=== PATIENT | female | born 1965 | race Asian ===

== ENCOUNTER → 2018-06-19 10:25 | Outpatient (CLI) | payer BC, SELFPAY ==
[2018-06-27 13:12] LABS: HPV Reflexed? NOT INDICATED
== END ==
PROVIDERS: Family Provider Internal Medicine; PCP Internal Medicine; Referring Provider Internal Medicine; Visit Provider Internal Medicine
DX: Z00.00 Encounter for general adult medical examination without abnormal findings (principal)
CPT/HCPCS: 88175; G0145

== ENCOUNTER 2021-04-15 17:25 | Emergency (ER) | payer BC, SELFPAY ==
[2021-04-15 17:26] VITALS: BP 120/78; PULSE 78; RESP 16; TEMP 36.9; O2SAT 98; BMI 21.5
--- NOTE | 2021-04-15 19:06 | EKG12_ITS ---
Test Reason : SOB Blood Pressure : / mmHG Vent. Rate : 061 BPM Atrial Rate : 061 BPM P-R Int : 130 ms QRS Dur : 070 ms QT Int : 444 ms P-R-T Axes : 029 048 041 degrees QTc Int : 446 ms Normal sinus rhythm Normal ECG Confirmed by CRISTINA SANTILLAN, CARLOS A ([id number]), editorial manager YEE MADRID ([id number]) on 04/19/2021 1:03:56 PM Referred By: TEREZA Confirmed By:CARLOS A EVANS MD
--- NOTE | 2021-04-15 19:06 | RAD_ITS ---
STUDY: X-RAY CHEST REASON FOR EXAM: Female, 55 years old. sob TECHNIQUE: Frontal view COMPARISON: None. FINDINGS: The lungs are expanded. There is no demonstrated pleural abnormality. Questionable nodular density versus nipple shadow over the right lung base. Normal size heart. Normal mediastinum and benja. Normal visualized pulmonary arteries. Normal visualized aortic arch and descending thoracic aorta. Normal visualized thoracic spine. Normal visualized ribs, clavicles, and shoulders. There is no demonstrated abnormality of the visualized soft tissue structures of the upper abdomen. RAD/Chest 1 View (Portable) IMPRESSION: Questionable nodular density versus nipple shadow over the right lung base. Electronically Signed: Baldev Sawant DO at 20:06 EDT Tel [phone], Service support ,
--- NOTE | 2021-04-15 19:07 | EDS_ITS ---
HPI History of Present Illness Chief Complaint: Shortness of Breath Informant: patient Onset/Context/Timing Onset: Weeks (1 week) Context: Gradual Onset Current Severity: Mild Maximum Severity: Moderate Narrative Narrative: Patient presents secondary to upper back pain along with shortness of breath. Symptoms of been ongoing for the past week. She states that she stretches her arms out to the side or over her head the pain actually improves. She states she did have similar symptoms last year that lasted a couple days and then resolved. She was not evaluated at that time. Patient denies any personal or family history of coronary disease. PFSH PFSH no medical history Home Medications NK 06/19/18 [History Last Taken Unknown] Allergy/AdvReac Type Severity Reaction Status Date / Time No Known Allergies Allergy Verified 04/15/21 17:26 Family History Mother Colon cancer Uncle Cancer lung Unknown Cancer 2 cousins on maternal side Social History Smoking Status: Never smoker alcohol intake: never substance use type: does not use what type of physical activity do you participate in: none ROS ROS ED Constitutional Constitutional ED: Denies chills or fever(s) Eyes Eyes: Denies change in vision ENT ENT ED: Denies sore throat Cardiovascular Cardiovascular: Denies chest pain Respiratory/Chest Respiratory/Chest: Reports dyspnea; Denies cough Gastrointestinal Gastrointestinal: Denies abdominal pain, diarrhea, nausea or vomiting Genitourinary Genitourinary ED: Denies dysuria Musculoskeletal Musculoskeletal: Reports back pain Integumentary Denies rash Neurologic Neurologic: Denies headache(s) or weakness Psychiatric Psychiatric: Denies anxiety or depression Allergic/Immunologic Allergic/Immunologic ED: Denies urticaria EXAM Physical Exam Const Vital Signs: 04/15/21 17:26 04/15/21 19:01 Temperature 98.4 F Temperature Source Temporal Pulse Rate 78 Respiratory Rate 16 Respiratory Effort Normal Non-Labored Respiratory Depth Normal Respiratory Pattern Normal Blood Pressure 120/78 Blood Pressure Mean 92 Pulse Ox 98 Oxygen Delivery Method Room Air Room Air Positive well nourished and well developed General Appearance ED: well developed HEENT Reports normocephalic and head/scalp atraumatic Eyes PERRL and EOMs intact bilaterally Neck supple Chest Wall inspection of chest normal and palpation of chest normal Resp normal respiratory effort and clear to auscultation bilaterally Cardio regular rate and regular rhythm GI normal to inspection, nondistended, normoactive bowel sounds and non-tender Palpation: soft Back/Spine no CVA tenderness Back/Spine Narrative: No reproducible tenderness over the upper thoracic spine. No overlying skin changes. Extremity normal to inspection Neuro oriented x3 and no sensory deficits noted Sensorium / Orientation: alert Motor Exam: strength 5/5 throughout Psych mental status grossly normal Skin no rashes or lesions noted MDM MDM MDM Narrative Medical decision making narrative: EKG, labs, chest x-ray obtained. Patient was given Toradol for pain. Lab Data Attestation: I reviewed the patient's lab results. Labs: Laboratory Results - last 24 hr 04/15/21 04/15/21 04/15/21 19:17 19:17 19:17 WBC 5.9 RBC 4.49 Hgb 13.3 Hct 42.0 MCV 93.5 MCH 29.6 MCHC 31.7 L RDW Std Deviation 38.3 RDW Coeff of [place] 11.2 L Plt Count 340 MPV 9.9 Immature Gran % (Auto) 0.200 Neut % (Auto) 52.7 Lymph % (Auto) 39.0 [place] % (Auto) 6.1 Eos % (Auto) 1.3 Baso % (Auto) 0.7 Absolute Neuts (auto) 3.1 Absolute Lymphs (auto) 2.31 Nucleated RBC % 0 D-Dimer Quant (PE/DVT) <= 0.27 Sodium 140 Potassium 3.7 Chloride 105 Carbon Dioxide 31.0 Anion Gap 4 L BUN 12 Creatinine 0.66 Estim Creat Clear Calc 72.68 Est GFR (MDRD) Af Amer 119 Est GFR (MDRD) Non-Af 98 BUN/Creatinine Ratio 18.1 Glucose 94 Calcium 9.3 Troponin I High Sens 7 Radiography Chest X-Ray - ED: 1 View, Read by ED Physician, Normal, Heart, Lungs and Mediastinum Diagnostic Testing: Radiology Impression Chest X-Ray 04/15/21 19:06 IMPRESSION: Questionable nodular density versus nipple shadow over the right lung base. Electronically Signed: Baldev Sawant DO at 20:06 EDT Tel [phone], Service support , EKG Initial EKG: Attestation: I personally reviewed and interpreted this EKG as follows: Interpretation: Sinus Rhythm (Sinus at 61 with no acute ischemia.) Treatment and Re-Evaluation Comments:: Repeat evaluation patient resting comfortably. Test results discussed with her. At this time troponin and D-dimer are both unremarkable. I believe patient's pain is consistent with musculoskeletal. She will try anti- inflammatories for the next several days. She will follow-up with her PCP. Discharge Plan Triage Chief Complaint: Shortness of Breath ED Provider: Agata Reeves Dx/Rx/DC Orders Clinical Impression: Back pain Instructions: ED Back and Neck Pain, General Prescriptions: No Action NK RF: 0 Primary Care Provider: Care Physician,No Primary Referrals: Ed Rojas MD [STAFF PHYSICIAN] - 1 Week if not improving Care Physician,No Primary [Primary Care Provider] - Disposition Disposition: Home, Self Care
[2021-04-15 19:33] LABS: Absolute Lymphocyte Count 2.31 X10^3/uL (0.83-4.51); Absolute Neutrophil Count 3.1 X10^3/uL (2.0-7.7); Basophil# 0.04 X10^3/uL; Basophil% 0.7 % (0-1); Eosinophil# 0.08 X10^3/uL; Eosinophils% 1.3 % (0-5); Hemoglobin 13.3 g/dL (12.0-15.0); Lymphocyte # 2.31 X10^3/ul (0.83-4.51); Mean Corp Hgb Conc 31.7 g/dL (32-36); Mean Corpuscular Hgb 29.6 pg (27.0-32.0); Mean Corpuscular Volume 93.5 fL (81-99); Mean Platelet Vol. 9.9 fl (6.2-12.0); Monocyte# 0.36 X10^3/uL; Monocyte% 6.1 % (0-10); NRBC Flagged by Analyzer 0 % (0-5); Neutrophil # 3.13 X10^3/uL (2.7-7.7); Neutrophil % 52.7 % (47-70); Platelet Count 340 K/mm3 (150-450); RBC Distribution Width CV 11.2 % (11.6-14.6); RBC Distribution Width SD 38.3 fl (35.1-43.9); Red Blood Count 4.49 M/mm3 (4.2-5.4); White Blood Count 5.9 K/mm3 (4.4-11.0)
[2021-04-15 20:01] LABS: Anion Gap 4 (5-15); BUN 12 mg/dL (7-18); BUN/Creat Ratio 18.1 RATIO (10-20); Calcium,Total 9.3 mg/dL (8.5-10.1); Chloride 105 mmol/L (98-107); Creatinine, Serum 0.66 mg/dL (0.55-1.02); EST Glomerular Filtration Rate 98 mL/min (>60); Est Glom Filt Rate - Afr Amer 119 mL/min (>60); Estimated Creatinine Clearance 72.68 ml/min; Glucose 94 mg/dL (74-106); Potassium 3.7 mmol/L (3.5-5.1); Sodium Level 140 mmol/L (136-145); Troponin-I HS 7 pg/mL (3.0-54.0)
[2021-04-15 20:06] LABS: D-Dimer Quantitative (DVT/PE) <= 0.27 FEU/ug/m (0.27-0.49)
[2021-04-15 20:58] VITALS: BP 132/71; PULSE 68; RESP 18; O2SAT 99
== END 2021-04-15 20:59 | disposition home or self-care (01) ==
PROVIDERS: Emergency Provider Emergency Medicine
DX: M54.6 Pain in thoracic spine (principal); R06.02 Shortness of breath
CPT/HCPCS: 71045; 80048; 84484; 85025; 85379; 93005; 96374; 99284; A4216

== ENCOUNTER 2024-11-16 23:30 | Emergency (ER) | payer BC, SELFPAY ==
[2024-11-16 23:31] VITALS: BP 155/80; PULSE 78; RESP 16; TEMP 36.4; O2SAT 99; BMI 20.9
--- NOTE | 2024-11-16 23:54 | EDS_ITS ---
HPI History of Present Illness Chief Complaint: Complaint Informant: patient Narrative Narrative: Patient is a 59-year-old female with no significant past medical history. She states over the last few hours she has noticed increased urination with urgency dysuria and bloody discoloration. She denies any history of bleeding disorder or blood thinner use. She states that there is no back pain. She denies any fevers chills. She denies any genital lesions. She states she has concern for UTI based on her symptoms and therefore comes in for evaluation [facility] Medical History no medical history no medical history Home Medications ?Medication ?Instructions ?Recorded ?Last Taken ?Type cephalexin 500 mg capsule 500 mg PO TID 7 days #21 cap s 11/17/24 Unknown Rx phenazopyridine 200 mg tablet 200 mg PO TID 2 days #6 tabs 11/17/24 Unknown Rx (Pyridium) Allergy/AdvReac Type Severity Reaction Status Date / Time No Known Allergies Allergy Verified 04/15/21 17:26 Family History Mother Colon cancer Uncle Cancer lung Unknown Cancer 2 cousins on maternal side Social History Smoking Status: Never smoker alcohol intake: never substance use type: does not use what type of physical activity do you participate in: none ROS ROS ED Constitutional Constitutional ED: Denies chills or fever(s) Eyes Eyes: Denies change in vision ENT ENT ED: Denies sore throat Cardiovascular Cardiovascular: Denies chest pain Respiratory/Chest Respiratory/Chest: Denies cough or dyspnea Gastrointestinal Gastrointestinal: Denies abdominal pain, diarrhea, nausea or vomiting Genitourinary Genitourinary ED: Reports dysuria, hematuria and urinary frequency Musculoskeletal Musculoskeletal: Denies back pain Integumentary Denies rash Neurologic Neurologic: Denies headache(s) Hematologic/Lymphatic Hematologic/Lymphatic: Denies easy bleeding or easy bruising EXAM Physical Exam Const Vital Signs: 11/16/24 23:31 Temperature 97.6 F L Temperature Source Temporal Pulse Rate 78 Respiratory Rate 16 Blood Pressure 155/80 H Blood Pressure Mean 105 Pulse Ox 99 Oxygen Delivery Method Room Air Positive well nourished and well developed General Appearance ED: well developed; Negative for pallor HEENT HEENT Narrative: Normocephalic atraumatic Eyes PERRL and EOMs intact bilaterally General Eye ED: Negative for pale conjunctiva or scleral icterus Neck supple Resp normal respiratory effort and clear to auscultation bilaterally Cardio regular rate and regular rhythm Rate: other Other Details: Heart is regular rate and rhythm without murmurs rubs or gallops Radial and carotid pulses are equal and symmetric GI non-distended and no masses GI Narrative: Soft and nondistended with normal active bowel sounds. There is mild pain on palpation in the suprapubic region without voluntary guarding or rigidity or pulsatile mass. No organomegaly to suggest acute urinary retention. Auscultation: normoactive bowel sounds Palpation: soft Back/Spine no CVA tenderness Extremity normal to inspection Neuro oriented x3, CN's II-XII intact bilaterally and no sensory deficits noted Sensorium / Orientation: alert Motor Exam: strength 5/5 throughout Psych mental status grossly normal Skin no rashes or lesions noted and no wounds General Skin Exam: Negative for jaundice or pallor MDM MDM MDM Narrative Medical decision making narrative: Patient presented to the ER slightly hypertensive but overall stable vitals. She reported frequency urgency dysuria and hematuria. Symptoms that all could be consistent with hemorrhagic cystitis. As she does not have CVA pain my concern for acute pyelonephritis is low. Also as she does not have unilateral flank or abdominal pain concern for the hematuria coming from a kidney stone is low as well. Without fever or history immunosuppression or hypotension concern for urosepsis is low amounts of low concern for acute kidney injury associated with her symptoms. Therefore this time only feel the need for a urine sample. The UA did show changes consistent with hematuria and there was a large amount of leukocyte esterase which is most likely related to developing infection but only rare bacteria. I feel the rare bacteria is only secondary to the fact symptoms have been present for just a few hours. I discussed with the patient that options at this time are simple treatment for UTI/hemorrhagic cystitis while urine culture is pending versus performing basic blood work and a CT scan to look for potential kidney stone or bladder mass as a cause of her symptoms. As her history and exam is most consistent with UTI/hemorrhagic cystitis the patient prefers to just simply treat at this time and will return if symptoms fail to resolve or worsen. therefore as her physical exam and vitals do not suggest urosepsis there is no need for further evaluation and she can be on antibiotics and is otherwise safe for discharge. History & Record Review Discussion w/independent historian: Patient Lab Data Labs: Laboratory Results - last 24 hr 11/16/24 23:42 Urine Color Red Urine Clarity Sl. Cloudy Urine pH 6.5 Ur Specific [place] 1.005 Urine Protein 500 H Urine Glucose (UA) Normal Urine Ketones Negative Urine Occult Blood 250 H Urine Nitrite Negative Urine Bilirubin Negative Urine Urobilinogen Normal Ur Leukocyte Esterase 500 H Urine RBC > 100 SEEN Urine WBC 0-5 SEEN Ur Squamous Epith Cells 0-5 SEEN Urine Bacteria RARE Urine Mucus 0 SEEN Discharge Plan Triage Chief Complaint: Complaint ED Provider: Stefan La Dx/Rx/DC Orders Clinical Impression: Acute hemorrhagic cystitis Instructions: UTIs, ED Hematuria Prescriptions: New cephalexin 500 mg capsule 500 mg PO TID 7 Days Qty: 21 0RF phenazopyridine [Pyridium] 200 mg tablet 200 mg PO TID 2 Days Qty: 6 0RF Primary Care Provider: Care Physician,No Primary Referrals: Ninfa Hope MD [Med Staff - Active Staff] - Care Physician,No Primary [Primary Care Provider] - Activity Restrictions/Additional Instructions: Your exam and workup is indicating hemorrhagic cystitis which is bleeding of the bladder from a urinary tract infection. Take the antibiotic as directed to help resolve this. It would usually take 2 to 3 days for the antibiotic to take effect. If you develop a fever back pain abdominal pain or your symptoms do not resolve with the prescribed medication please return to the ER for repeat evaluation. Print Language: [place] Disposition Disposition: Home, Self Care
[2024-11-16 23:59] LABS: Mucous, Urine 0 SEEN /hpf (<or=2+)
[2024-11-17 00:01] LABS: Color, Urine Red (Yellow); Glucose, Dipstick Normal (Normal); Ketone-Dipstick Negative (Negative); Leukocyte Esterase-Dipstick 500 /ul (Negative); Nitrite-Dipstick Negative (Negative); Occult Blood-Urine 250 /ul (Negative); Protein-Dipstick 500 mg/dl (Negative); Specific Gravity, Urine 1.005 (1.002-1.030); Urine Bilirubin Dipstick Negative (Negative); Urine Clarity Sl. Cloudy (Clear); Urine Urobilinogen Normal (Normal); Urine pH 6.5 (5.0 - 8.0)
[2024-11-17 00:52] LABS: White Blood Cells 0-5 SEEN /hpf (0-5)
[2024-11-17 00:53] LABS: Bacteria RARE /hpf (None Seen); Red Blood Cells-Urine > 100 SEEN /hpf (0-5); Squamous Epithelial Cells - UA 0-5 SEEN /hpf (5-10)
[2024-11-17] MEDS: Phenazopyridine 95 MG Tablet 190 MG PO (01:08)
[2024-11-17] MEDS: Cephalexin 250 MG Capsule 500 MG PO (01:08)
== END 2024-11-17 01:11 | disposition home or self-care (01) ==
PROVIDERS: Emergency Provider Emergency Medicine; Visit Provider Emergency Medicine
DX: N30.01 Acute cystitis with hematuria (principal)
CPT/HCPCS: 81001; 87077; 87086; 87088; 87186; 99283